=== PATIENT | female | born 1935 | race Caucasian/White ===

== ENCOUNTER 2016-06-12 21:42 | Inpatient (IN) | payer OTHER, BC ==
[~2016-06-12] VITALS: Ht 152.4 cm; Wt 81.8 kg
[~2016-06-12 21:42] MED LIST: AMLODIPINE BESYL5 MG PO; GLUCOPHAGE500 MG PO; GLYBURIDE2.5 MG PO; HYDROCHLOROTHIA25 MG PO; LANTUS 3 M100 UNITS1 SC; LOSARTAN POTAS100 MG PO; OMEPRAZOLE20 MG PO; POTASSIUM CHLO10 ME3 PO; PRAVACHOL40 MG PO
[2016-06-12 21:58] LABS: HEMATOCRIT 35.6 % (36.0-46.0); MCH 27.4 PG (29.0-34.0); MCHC 35.1 G/DL (30.0-36.0); MCV 78.1 FL (83-99); MEAN PLAT.VOLUME 10.4 uM^3 (9.5-12.4); PLATELET COUNT 128 K/uL (156-360); RBC DIS.WIDTH-CV 14.2 % (11.8-14.6); RBC DIS.WIDTH-SD 39.3 % (39-53); RED BLOOD COUNT 4.56 M/uL (3.80-5.20); WHITE BLOOD COUNT 5.4 K/uL (4.1-10.2)
[2016-06-12 22:06] LABS: CHLORIDE 85 mEq/L (99-109)
[2016-06-12 22:08] LABS: POTASSIUM ND mEq/L (3.7-5.4)
[2016-06-12 22:10] LABS: ANION GAP 14 MEQ/L (2-14)
[2016-06-12 22:11] LABS: TOTAL BILIRUBIN 0.6 mg/dL (0.0-1.0)
[2016-06-12 22:12] LABS: ALKALINE PHOSPHATASE 52 IU/L (3-129); GFR ESTIMATE (CALCULATED) 42 mL/min/
[2016-06-12 22:13] LABS: UREA NITROGEN (BUN) 23 mg/dL (9-23)
[2016-06-12 22:16] LABS: LIPASE 28 U/L (1.0-51.0)
[2016-06-12 22:21] LABS: TROP-I INTERPRETATION NEGATIVE; TROPONIN-I < 0.01 ng/mL (0.0-0.30)
[2016-06-12 22:31] LABS: GLUCOSE 131 mg/dL (70-99)
[2016-06-12 22:40] LABS: SODIUM 119 mEq/L (136-147)
[2016-06-12 23:12] LABS: INFLUENZA A VIRAL ANTIGEN POSITIVE; INFLUENZA B VIRAL ANTIGEN NEGATIVE
[2016-06-12 23:46] LABS: ADD MIUA? NO; BILIRUBIN NEGATIVE; BLOOD NEGATIVE; COLOR STRAW ((YELLOW)); GLUCOSE (STRIP) NEGATIVE; KETONES 5; LEUKOCYTES NEGATIVE; NITRITE NEGATIVE; PROTEIN (STRIP) NEGATIVE; SPECIFIC GRAVITY 1.006 (1.000-1.030); UCUL ADDED? NO; UROBILINOGEN 0.2 MG/DL (0.2-1.0)
[2016-06-12] MEDS ORDERED: BASAGLAR K100 UNIT/1 SC (23:55)
[2016-06-12] MEDS ORDERED: GLYBURIDE-METF1 EAC1 PO (23:55)
[2016-06-12] MEDS ORDERED: AMLODIPINE BESYL5 MG PO (23:55)
[2016-06-12] MEDS ORDERED: CALCIUM 500 MG1 EACH PO (23:56)
[2016-06-12] MEDS ORDERED: CHLORTHALIDONE25 MG PO (23:56)
[2016-06-12] MEDS ORDERED: SPIRONOLACTONE25 MG PO (23:56)
[2016-06-12] MEDS ORDERED: ASCORBIC ACID500 M3 PO (23:56)
[2016-06-12] MEDS ORDERED: SYSTANE 0.3-0.1 EACH BOTH EYES (23:57)
[2016-06-12] MEDS ORDERED: KETONE PO (23:58)
[2016-06-13] VITALS (11 sets, daily range): BP systolic 86–136; BP diastolic 57–73
[2016-06-13 02:21] LABS: URIC ACID 5.9 mg/dL (3.1-9.2)
[2016-06-13 04:07] LABS: METH RESISTANT S AUREUS PCR NEGATIVE (NEGATIVE)
[2016-06-13 04:09] LABS: PROBE CHECK PASS; SPECIMEN PROCESSING CONTROL PASS
[2016-06-13 04:57] LABS: POTASSIUM 4.4 mEq/L (3.7-5.4); SODIUM 125 mEq/L (136-147)
[2016-06-13 04:58] LABS: CHLORIDE 94 mEq/L (99-109); GLUCOSE 184 mg/dL (70-99)
[2016-06-13 05:00] LABS: ANION GAP 12 MEQ/L (2-14)
[2016-06-13 05:02] LABS: GFR ESTIMATE (CALCULATED) 51 mL/min/
[2016-06-13 05:03] LABS: UREA NITROGEN (BUN) 21 mg/dL (9-23)
[2016-06-13 09:53] LABS: ANION GAP 9 MEQ/L (2-14); CHLORIDE 94 MEQ/L (99-109); GFR ESTIMATE (CALCULATED) 56 mL/min/; GLUCOSE 163 mg/dL (70-99); SAMPLE HEMOLYSIS CHECK 1; SAMPLE ICTERIC CHECK 0; SAMPLE LIPEMIA CHECK 0; SODIUM 125 MEQ/L (136-147); UREA NITROGEN (BUN) 20 mg/dL (9-23)
[2016-06-13 09:58] LABS: POTASSIUM 4.2 MEQ/L (3.7-5.4)
[2016-06-13 10:17] LABS: EOSINOPHIL (%) 0.3 % (0-5); HEMATOCRIT 35.5 % (36.0-46.0); IMMATURE GRANULOCYTE (%) 0.3 % (0.0-0.7); LYMPHOCYTE COUNT 0.9 K/uL (1.0-2.8); MCH 27.1 PG (29.0-34.0); MCHC 33.8 G/DL (30.0-36.0); MCV 80.1 FL (83-99); MEAN PLAT.VOLUME 10.2 uM^3 (9.5-12.4); MONOCYTE (%) 11.8 % (3-12); MONOCYTE COUNT 0.4 K/uL (0-0.8); NEUTROPHIL (%) 58.2 % (45-76); NEUTROPHIL COUNT 1.7 K/uL (1.8-6.4); PLATELET COUNT 125 K/uL (156-360); RED BLOOD COUNT 4.43 M/uL (3.80-5.20)
[2016-06-13 12:09] LABS: POINT-OF-CARE METER ID UU13113803
[2016-06-13 13:13] LABS: ANION GAP 8 MEQ/L (2-14); CHLORIDE 95 MEQ/L (99-109); GFR ESTIMATE (CALCULATED) 56 mL/min/; GLUCOSE 155 mg/dL (70-99); POTASSIUM 4.1 MEQ/L (3.7-5.4); SAMPLE HEMOLYSIS CHECK 0; SAMPLE ICTERIC CHECK 0; SAMPLE LIPEMIA CHECK 0; SODIUM 128 MEQ/L (136-147); UREA NITROGEN (BUN) 20 mg/dL (9-23)
[2016-06-13 15:44] LABS: POINT-OF-CARE METER ID UU13113803
[2016-06-13 19:33] LABS: ANION GAP 9 MEQ/L (2-14); CHLORIDE 97 MEQ/L (99-109); GFR ESTIMATE (CALCULATED) 51 mL/min/; GLUCOSE 169 mg/dL (70-99); POTASSIUM 4.2 MEQ/L (3.7-5.4); SAMPLE HEMOLYSIS CHECK 0; SAMPLE ICTERIC CHECK 0; SAMPLE LIPEMIA CHECK 0; SODIUM 129 MEQ/L (136-147); UREA NITROGEN (BUN) 23 mg/dL (9-23)
[2016-06-13 22:02] LABS: POINT-OF-CARE METER ID UU13113748
[2016-06-14] VITALS (9 sets, daily range): BP systolic 109–158; BP diastolic 61–91
[2016-06-14 06:38] LABS: ALKALINE PHOSPHATASE 48 IU/L (3-129); ANION GAP 9 MEQ/L (2-14); CHLORIDE 99 MEQ/L (99-109); EOSINOPHIL COUNT 0.1 K/uL (0-0.3); GFR ESTIMATE (CALCULATED) 51 mL/min/; GLUCOSE 151 mg/dL (70-99); HEMATOCRIT 35.4 % (36.0-46.0); IMMATURE GRANULOCYTE (%) 0.2 % (0.0-0.7); LYMPHOCYTE COUNT 1.4 K/uL (1.0-2.8); MCH 28.2 PG (29.0-34.0); MCHC 34.2 G/DL (30.0-36.0); MCV 82.5 FL (83-99); MONOCYTE (%) 10.7 % (3-12); MONOCYTE COUNT 0.5 K/uL (0-0.8); NEUTROPHIL (%) 58.2 % (45-76); NEUTROPHIL COUNT 2.8 K/uL (1.8-6.4); PLATELET COUNT 125 K/uL (156-360); POTASSIUM 4.1 MEQ/L (3.7-5.4); RBC DIS.WIDTH-CV 14.4 % (11.8-14.6); RBC DIS.WIDTH-SD 43.1 % (39-53); RED BLOOD COUNT 4.29 M/uL (3.80-5.20); SAMPLE HEMOLYSIS CHECK 0; SAMPLE ICTERIC CHECK 0; SAMPLE LIPEMIA CHECK 0; SODIUM 132 MEQ/L (136-147); TOTAL BILIRUBIN 0.4 MG/DL (0.0-1.0); UREA NITROGEN (BUN) 22 mg/dL (9-23)
[2016-06-14 06:39] LABS: WHITE BLOOD COUNT 4.8 K/uL (4.1-10.2)
[2016-06-14 08:24] LABS: POINT-OF-CARE METER ID UU13113748
[2016-06-14 08:43] LABS: D-DIMER ELISA 1.15 mg/L FEU (< 0.57)
[2016-06-14 11:07] LABS: Estimated Average Glucose 146 mg/dL (70-123); HEMOGLOBIN A1c (GLYCOHEMOGLOB) 6.7 % HGB (Below 5.7)
[2016-06-14 14:24] LABS: ANION GAP 8 MEQ/L (2-14); CHLORIDE 97 MEQ/L (99-109); GFR ESTIMATE (CALCULATED) 46 mL/min/; POTASSIUM 4.1 MEQ/L (3.7-5.4); SAMPLE HEMOLYSIS CHECK 0; SAMPLE ICTERIC CHECK 0; SAMPLE LIPEMIA CHECK 0; SODIUM 128 MEQ/L (136-147); UREA NITROGEN (BUN) 19 mg/dL (9-23)
[2016-06-14 14:29] LABS: GLUCOSE 228 mg/dL (70-99)
[2016-06-14 21:40] LABS: POINT-OF-CARE METER ID UU14162508
[2016-06-15] VITALS: BP 134/74
[2016-06-15 04:00] VITALS: BP 140/72
[2016-06-15 07:18] LABS: EOSINOPHIL (%) 0.6 % (0-5); HEMATOCRIT 35.8 % (36.0-46.0); IMMATURE GRANULOCYTE (%) 0.4 % (0.0-0.7); MCHC 33.8 G/DL (30.0-36.0); MCV 82.9 FL (83-99); MEAN PLAT.VOLUME 10.5 uM^3 (9.5-12.4); MONOCYTE (%) 9.7 % (3-12); MONOCYTE COUNT 0.5 K/uL (0-0.8); NEUTROPHIL (%) 69.8 % (45-76); NEUTROPHIL COUNT 3.6 K/uL (1.8-6.4); PLATELET COUNT 138 K/uL (156-360); RBC DIS.WIDTH-CV 14.2 % (11.8-14.6); RBC DIS.WIDTH-SD 43.2 % (39-53); RED BLOOD COUNT 4.32 M/uL (3.80-5.20); WHITE BLOOD COUNT 5.2 K/uL (4.1-10.2)
[2016-06-15 07:40] LABS: ALKALINE PHOSPHATASE 50 IU/L (3-129); ANION GAP 8 MEQ/L (2-14); CHLORIDE 97 MEQ/L (99-109); GFR ESTIMATE (CALCULATED) 51 mL/min/; GLUCOSE 141 mg/dL (70-99); POTASSIUM 4.2 MEQ/L (3.7-5.4); SAMPLE HEMOLYSIS CHECK 0; SAMPLE ICTERIC CHECK 0; SAMPLE LIPEMIA CHECK 0; SODIUM 132 MEQ/L (136-147); UREA NITROGEN (BUN) 14 mg/dL (9-23)
[2016-06-15 07:47] VITALS: BP 138/74
[2016-06-15 08:02] LABS: TOTAL BILIRUBIN 0.5 MG/DL (0.0-1.0)
[2016-06-15 11:38] VITALS: BP 140/70
[2016-06-15] MEDS ORDERED: DUONEB 2.5-0.5 M3 ML AEROSOL (12:15)
[2016-06-15] MEDS ORDERED: ADVAIR HFA120 INHALA IH (12:15)
[2016-06-15] MEDS ORDERED: OSELTAMIVIR PHO30 MG PO (12:15)
== END 2016-06-15 14:24 | disposition home or self-care (01) | DRG 640 ==
LOC: EME 21:42 → 4WEST 06-13 00:17 → 2EAST 06-13 00:17 → EDOF 06-13 00:17 → 4WEST 06-13 00:53 → 2EAST 06-14 10:46
PROVIDERS: Emergency Medicine; Hospitalist; Internal Medicine; Obstetrics & Gynecology
DX: E87.1 Hypo-osmolality and hyponatremia (principal); J96.01 Acute respiratory failure with hypoxia; J10.1 Influenza due to other identified influenza virus with other respiratory manifestations; J20.9 Acute bronchitis, unspecified; E86.0 Dehydration; A08.4 Viral intestinal infection, unspecified; G47.33 Obstructive sleep apnea (adult) (pediatric); I10 Essential (primary) hypertension; E11.9 Type 2 diabetes mellitus without complications; E78.5 Hyperlipidemia, unspecified; D69.6 Thrombocytopenia, unspecified; D64.9 Anemia, unspecified; E66.01 Morbid (severe) obesity due to excess calories; Z68.35 Body mass index [BMI] 35.0-35.9, adult; Z85.3 Personal history of malignant neoplasm of breast
CPT/HCPCS: 70450; 71020; 71275; 74176; 80048; 80048 91; 80053; 81003; 82436; 82533 91; 82948; 83036; 83690; 83880; 84133; 84295; 84300; 84443; 84484; 84550; 84999; 85025; 85027; 85379; 87502; 87641; 93005; 94640; 94640 76; 99202; 99281; 99285; J1644; J1815; J2405; J7030

== ENCOUNTER 2016-10-21 05:42 | Emergency (ER) | payer OTHER, MEDICARE ==
[~2016-10-21] VITALS: Ht 152.4 cm; Wt 85.2 kg
[~2016-10-21 05:42] MED LIST changes: +ADVAIR HFA120 INHALA IH; +ASCORBIC ACID500 M3 PO; +BASAGLAR K100 UNIT/1 SC; +CALCIUM 500 MG1 EACH PO; +CHLORTHALIDONE25 MG PO; +DUONEB 2.5-0.5 M3 ML AEROSOL; +GLYBURIDE-METF1 EAC1 PO; +KETONE PO; +OSELTAMIVIR PHO30 MG PO; +SPIRONOLACTONE25 MG PO; +SYSTANE 0.3-0.1 EACH BOTH EYES
[2016-10-21] MEDS ORDERED: PERCOCET 5/31 TABLET PO (09:57)
[2016-10-21 10:23] VITALS: BP 147/77
== END 2016-10-21 10:31 | disposition home or self-care (01) ==
LOC: EME 05:42
DX: S93.402A Sprain of unspecified ligament of left ankle, initial encounter (principal); X58.XXXA Exposure to other specified factors, initial encounter; R20.0 Anesthesia of skin; E11.9 Type 2 diabetes mellitus without complications; Z79.4 Long term (current) use of insulin
CPT/HCPCS: 73610; 93971; 99281; 99284